=== PATIENT | male | born 1970 | race Caucasian/White ===

== ENCOUNTER → 2023-09-22 | Outpatient (CLI) | payer OTHER, SELFPAY | END | disposition home or self-care (01) | PROVIDERS: PCP Nurse Practitioner Family; Referring Provider Psychiatry & Neurology Sleep Medicine; Visit Provider Psychiatry & Neurology Sleep Medicine | DX: R41.89 Other symptoms and signs involving cognitive functions and awareness (principal); R47.9 Unspecified speech disturbances; Z87.828 Personal history of other (healed) physical injury and trauma | CPT/HCPCS: 95819 ==

== ENCOUNTER → 2025-06-30 | Outpatient (CLI) | payer OTHER, SELFPAY ==
--- NOTE | 2025-06-30 09:43 | RAD_ITS ---
PROCEDURE: ELBOW MIN 3 VIEWS 06/30/2025 REASON FOR EXAM: LEFT ELBOW PAIN TECHNIQUE: ELBOW MIN 3 VIEWS COMPARISON: None FINDINGS: Bones: Degenerative spur seen along the posterior aspect of the olecranon process. Joints: Normal alignment. Joint spaces preserved. No arthropathic features. Soft tissues: Soft tissue swelling. Other: RAD/Elbow min 3 Views IMPRESSION: Degenerative spur seen along the posterior aspect of the olecranon process with overlying soft tissue swelling. Bursitis should be ruled out. Reading Location: [id number]
[2025-06-30 13:22] LABS: Hematocrit 44.9 % (40-54); Hemoglobin 15.2 g/dL (13.0-16.5); Immature Granulocytes Count 0.020 X10^3/uL (0.0-0.0); Mean Corp Hgb Conc 33.9 g/dL (32-36); Mean Corpuscular Volume 91.1 fL (80-94); Mean Platelet Vol. 10.6 fl (6.2-12.0); NRBC Flagged by Analyzer 0 % (0-5); Platelet Count 206 K/mm3 (150-450); RBC Distribution Width CV 11.8 % (11.6-14.6); RBC Distribution Width SD 38.8 fl (35.1-43.9); Red Blood Count 4.93 M/mm3 (4.6-6.2); White Blood Count 6.0 K/mm3 (4.4-11.0)
[2025-06-30 13:36] LABS: AST(SGOT) 19 U/L (<=37); Alanine Aminotransfer ALT/SGPT 23 U/L (<=46); Albumin, Serum 4.3 g/dL (3.5-5.0); Alkaline Phosphatase 113 U/L (40-129); Anion Gap 13 (5-15); BUN 14 mg/dL (4-19); BUN/Creat Ratio 17.4 RATIO (10-20); Calcium,Total 9.5 mg/dL (7.6-11.0); Carbon Dioxide 22.7 mmol/L (21.0-32.0); Chloride 105 mmol/L (98-108); Cholesterol 198 mg/dL (<=200); Globulin 2.9 g/dL (2.2-4.2); Glucose 146 mg/dL (70-99); Low Density Lipoprotein Calc. 123 mg/dL; Potassium 4.1 mmol/L (3.3-5.1); Triglycerides 99 mg/dL; Very Low Density Lipoprotein 20 mg/dL (5-40); cholesterol:hdl ratio screen 3.58
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
== END | disposition home or self-care (01) ==
LOC: MTLAB 09:43
PROVIDERS: PCP Family Medicine; Referring Provider Family Medicine; Visit Provider Family Medicine
DX: Z00.00 Encounter for general adult medical examination without abnormal findings (principal); M25.522 Pain in left elbow; R73.09 Other abnormal glucose
CPT/HCPCS: 36415; 73080; 80053; 80061; 83036; 84443; 85025